=== PATIENT | female | born 1960 | race Caucasian/White ===

== ENCOUNTER 2023-06-14 14:39 | Outpatient (CLI) | payer BC, SELFPAY | END 2023-06-14 14:40 | disposition home or self-care (01) | PROVIDERS: PCP Nurse Practitioner Family; Visit Provider Nurse Practitioner Family | DX: Z01.818 Encounter for other preprocedural examination (principal) | CPT/HCPCS: 80048; 85025 ==

== ENCOUNTER 2023-06-20 13:07 | Outpatient (RCR) | payer BC, SELFPAY | END 2023-07-13 16:18 | disposition home or self-care (01) | PROVIDERS: PCP Nurse Practitioner Family; Visit Provider Orthopaedic Surgery Sports Medicine | DX: M17.11 Unilateral primary osteoarthritis, right knee (principal); Z96.651 Presence of right artificial knee joint; M25.561 Pain in right knee; M25.661 Stiffness of right knee, not elsewhere classified; R26.2 Difficulty in walking, not elsewhere classified; Z51.89 Encounter for other specified aftercare | CPT/HCPCS: 97110; 97116; 97161 ==

== ENCOUNTER 2023-06-27 06:00 | Day surgery (SDC) | payer BC, SELFPAY ==
[2023-06-27] VITALS (17 sets, daily range): BP systolic 94–135; BP diastolic 56–88; PULSE 59–74; RESP 16; TEMP 35.9–36.9; O2SAT 94–100; BMI 28.0
[2023-06-27] MEDS: OXYCODONE (CR) 10 MG TAB.ER.12H PO (06:30)
[2023-06-27] MEDS: ACETAMINOPHEN 500 MG TABLET 1000 MG PO (06:30)
[2023-06-27] MEDS: LACTATED RINGERS 1000 ML 1,000 ML 100 ML IV ×2 (06:50→07:52)
[2023-06-27] MEDS: fentaNYL 100 MCG/2 ML inj IVP (07:03)
[2023-06-27] MEDS: MIDAZOLAM HCL 1 MG/ML inj IVP (07:04)
--- NOTE | 2023-06-27 07:14 | W.PM.NB ---
Nerve Block Nerve Block Time Seen by Provider: 07:00 Date Seen: 06/27/23 Type of block requested by surgeon for post-operative analgesia: adductor canal Side: right Time out performed: Yes Verification of patient name: Yes Verification of date of : Yes Site marking: site marked Name of person performing procedure: Joo Nelson Continuous monitoring Was continuous monitoring of O2 sat, B/P, quality assurance monitor chassis, recorded every 15 minutes?: Yes Procedure Checklist: sterile prep, needles and gloves Ultrasound guided. Images saved: Yes Medications given in 5ml increments after negative aspiration: Ropivicaine %: 0.5 mL: 20 Needle gauge: 20 Decadron (mg): 10 Precedex (mcg): 25 Patient tolerated procedure well: Yes Additional comments: injected in 5ml increments after negative aspiration Block Charges Block Charge (with Pro Fee): Femoral Nerve Use of Ultrasound Machine for Block: Yes- US Guidance/pain block
--- NOTE | 2023-06-27 07:15 | P.NB_ITS ---
Nerve Block Nerve Block Time Seen by Provider: 07:00 Date Seen: 06/27/23 Type of block requested by surgeon for post-operative analgesia: geniculars Side: right Time out performed: Yes Verification of patient name: Yes Verification of date of : Yes Site marking: site marked Name of person performing procedure: Joo Nelson Continuous monitoring Was continuous monitoring of O2 sat, B/P, monitor technician, recorded every 15 minutes?: Yes Procedure Checklist: sterile prep, needles and gloves Ultrasound guided. Images saved: No Medications given in 5ml increments after negative aspiration: Ropivicaine %: 0.5 mL: 12 Needle gauge: 25 Patient tolerated procedure well: Yes Additional comments: Injected in 4ml increments after negative aspiration Block Charges Block Charge (with Pro Fee): Genicular Nerve Block Use of Ultrasound Machine for Block: No
[2023-06-27] MEDS: CEFAZOLIN 2 GM in 0.9 % SODIUM CHLORIDE Mini-bag 100 ML IVPB (07:42)
[2023-06-27] MEDS: TRANEXAMIC ACID 100 MG/ML INJ 1000 MG IV (07:44)
--- NOTE | 2023-06-27 08:35 | W.PM.H&PU ---
History & Physical Update History & Physical Update H&P Reviewed and patient assessed: No changes noted
--- NOTE | 2023-06-27 08:36 | P.ORPRC_ITS ---
Procedure Note Date of procedure: 06/27/23 Procedure: PREOPERATIVE DIAGNOSIS: 1. Right knee osteoarthritis, primary, severe POSTOPERATIVE DIAGNOSIS: 1. Right knee osteoarthritis, primary, severe PROCEDURE: 1. Right total knee arthroplasty SURGEON: Levon Cherry MD. TEXTILE MACHINE OPERATOR: LEONIE Cortes - Of note, a skilled fast food assistant restaurant manager was critical for this case to aid in patient positioning, tissue retraction, limb manipulation/positioning, and closure. ANESTHESIA: Spinal anesthetic EBL: 50ml IMPLANTS: DePuy J&J uncemented femur/tibia, cemented patella TKA - Attune Press fit PS femur size 6 narrow, size for tibia, 5 poly spacer, 38 mm cemented patella TOURNIQUET: 80 min at 300 torr COMPLICATIONS: None evident INDICATIONS: The patient is a pleasant 62-year-old female who has experienced severe right knee pain and difficulty bearing weight. Workup included x-rays which revealed severe osteoarthrosis in the knee. Given the deformity, the dysfunction, and the pain, as well as the failure of nonoperative management, recommendation was made for surgery. FINDINGS: Full-thickness chondral loss broadly throughout the medial compartment with degenerative meniscus pathology. Significant patellofemoral chondromalacia. To lesser degree lateral compartment chondromalacia. Small effusion upon entering the joint. DESCRIPTION OF PROCEDURE: Following a thorough discussion of risks, benefits, and alternatives consent was obtained and the right knee was marked. The patient was brought to the operating room and placed supine on the operating table. Induction of anesthesia was undertaken. 1 g IV Ancef and 1 g tranexamic acid was administered within 1 hr of incision preoperatively. Proper time-out was performed identifying proper patient, site, procedure. The operative extremity was prepped and draped in the appropriate sterile fashion using ChloraPrep after the patient was positioned supine with all bony prominences well padded. A longitudinal, anterior, midline skin incision was made starting approximately 3cm proximal to the superior pole of the patella and advanced distal to the tibial tubercle. A median parapatellar arthrotomy was created. A medial subperiosteal sleeve was created with knife, santiago elevator and curved osteotome. The retropatellar fatpad was resected and the synovium in the suprapatellar pouch excised to visualize the anterior femoral cortex. Femoral preparation was performed via an intramedullary guide. Step drill allowed access into the femoral canal. The distal cutting guide was placed with 5? of valgus and 10 mm cut on the distal femur. Femur was sized using a anterior referencing guide in 3? of external rotation. This found have a best fit with the sizing noted above. The 4 in 1 cutting block was then placed, and the distal femur shaped accordingly. The box cut was then created and the trial implant inserted to confirm appropriate fit. We turned our attention to the proximal tibia. Extramedullary guide was utilized for cutting with the goal of being 90 degree cut from the mechanical axis of the tibia in the varus/valgus plane utilizing tibial crest as the primary alignment. Initially a 2 mm resection was performed from the medial tibial plateau. Ultimately, balancing was achieved in both flexion and extension in both varus and valgus. The knee was able to achieve full extension comfortably. The patella was initially measured and found have a thickness of 20 mm. It was resected back to approximately 14 mm. It was sized to be a best fit with as noted above. This was drilled & trial placed. All trials were placed and found to have an excellent stability and balance. At this stage, trial implants were removed, the tibia and femoral components were opened and inserted. Thereafter, the patella was thoroughly irrigated normal saline and dried. The cement was previously mixed on the back table and cement placed followed by the implant. This was clamped and allowed remained stable until the cement cured. The real poly spacer was opened and inserted. All extra cement was removed, and a 3 min Betadine soak performed. Finally, a final irrigation round with normal saline was performed. Closure performed with 0 PDS and #0 Stratafix for the quad tendon/retinaculum. 2-0 Vicryl/Stratafix for the subcutaneous and 4-0 Monocryl for subcuticular closure. Dressings were applied and the patient was awoken from anesthesia a fter the tourniquet deflated and transferred the PACU in stable condition. A skilled fast food assistant restaurant manager was critical for this case to aid in patient positioning, tissue retraction, bone exposure, limb manipulation/positioning, patient safety, and closure. PLAN: 1. Weight bear as tolerated operative extremity. 2. 23 hr perioperative antibiotics. 3. Ice. 4. PT/OT consults for ambulation assistance/mobility education. 5. Social work consult for discharge planning. 6. DVT prophylaxis with at SCDs, Moncho Hose, and aspirin twice daily.
--- NOTE | 2023-06-27 09:23 | CRLHL7_ITS ---
For Patients: As a result of the Century Cures Act, medical imaging exams and procedure reports are released immediately into your electronic medical record. You may view this report before your referring provider. If you have questions, please contact your health care provider. INDICATION: Postoperative knee replacement. Followup. TECHNIQUE: Two portable postoperative images of the right knee. FINDINGS: Right total knee arthroplasty. Patellar resurfacing. The components are adequately aligned and well seated. Air within the joint space and soft tissues related to the surgery. IMPRESSION: Right total knee arthroplasty. The components are adequately aligned and well seated. Dictated by Al Bravo MD @ 06/27/2023 11:41:42 AM (Electronically Signed)
--- NOTE | 2023-06-27 11:55 | SUR.PHASEII ---
Up to bathroom with walker and assist of 2 to the wheelchair. She still has some tingling in the buttocks area but has good stability and leg strength.
--- NOTE | 2023-06-27 13:06 | SUR.PHASEII ---
PATIENT BROUGHT TO REHAB. DOING WELL.
--- NOTE | 2023-07-19 10:54 | W.ANESCHARGE ---
Anesthesia Charges Start Date/Time Anesthesia Start Date: 06/27/23 Anesthesia Start Time: 07:31 Stop Date/Time Anesthesia Stop Date: 06/27/23 Anesthesia Stop Time: 09:14
== END 2023-06-27 14:16 | disposition home or self-care (01) ==
PROVIDERS: PCP Nurse Practitioner Family; Visit Provider Orthopaedic Surgery Sports Medicine
PROC: (CPT 27447; principal; 2023-06-27 07:30)
DX: M17.11 Unilateral primary osteoarthritis, right knee (principal); G89.18 Other acute postprocedural pain
CPT/HCPCS: 27447; 01402; 64447; 64454; 73560; 76942; 97110; 97116; 97161; A9270; C1776; J0690; J1100; J2250; J2405; J2704; J2795; J3010; J7120

== ENCOUNTER 2024-05-13 12:07 | Outpatient (CLI) | payer BC, SELFPAY ==
--- NOTE | 2024-05-13 12:15 | CRLHL7_ITS ---
For Patients: As a result of the Century Cures Act, medical imaging exams and procedure reports are released immediately into your electronic medical record. You may view this report before your referring provider. If you have questions, please contact your health care provider. INDICATION: Polyp of cervix. TECHNIQUE: Transabdominal and transvaginal pelvic ultrasound. FINDINGS: Uterus is retroverted and measures 6.8 x 3.9 x 4.0 cm. Endometrium is not well seen. There is a 2.5 cm heterogeneous solid mass in the uterine fundus. Both ovaries appear normal. No adnexal mass or free fluid. IMPRESSION: 2.5 cm mass in the uterine fundus. Differential considerations include endometrial neoplasm and sub mucosal leiomyoma. Dictated by Ry Barrera MD @ 05/13/2024 2:56:39 PM (Electronically Signed)
== END 2024-05-13 12:08 | disposition home or self-care (01) ==
LOC: US 12:08
PROVIDERS: PCP Nurse Practitioner Family; Visit Provider Obstetrics & Gynecology
DX: N84.1 Polyp of cervix uteri (principal); R19.09 Other intra-abdominal and pelvic swelling, mass and lump
CPT/HCPCS: 76830; 76856

== ENCOUNTER 2024-05-22 07:54 | Outpatient (CLI) | payer BC, SELFPAY ==
--- NOTE | 2024-05-22 08:15 | CRLHL7_ITS ---
For Patients: As a result of the Century Cures Act, medical imaging exams and procedure reports are released immediately into your electronic medical record. You may view this report before your referring provider. If you have questions, please contact your health care provider. INDICATION: Polyp removal TECHNIQUE: 1.5 T MRI of the pelvis was performed with MRI performed with pre and postcontrast T1 weighted imaging; T2 weighted imaging. 15 mL Dotarem IV. COMPARISON: Pelvic ultrasound 05/13/2024 FINDINGS: Uterus: The uterus is retroverted and normal in size measuring 4 x 6 cm. The endometrium measuring 3 mm in thickness. Dominant fibroid centered along the posterior uterus that is largely intramural with suspected submucosal component (FIGO 3) measuring 2.6 x 2.6 cm. Adjacent 0.6 cm fibroid is entirely intramural (FIGO 4). Along the left endometrium, there is an ill-defined region of T2 intermediate signal measuring 0.6 cm (4/19). This is not well evaluated on postcontrast sequences in the absence of small [id number]-[id number]-fjtu images, although may be present on series 16, image 19. This may correspond to a hyperechoic focus in the region of the endometrium measuring 0.5 cm on prior ultrasound. No definite evidence of endometriosis or adenomyosis. Cervical stroma: Intact without evidence of mass Ovaries/adnexa: Unremarkable. No evidence of ovarian/adnexal mass. Remaining pelvis: Limited evaluation of the abdominal viscera demonstrates normal appearance of the visualized bowel and urinary bladder. Vasculature: iliac arteries are patent. Lymph nodes: No enlarged lymph nodes within the pelvis. Peritoneal space: No free fluid within the pelvis. Musculoskeletal: Bone marrow signal is within normal limits. IMPRESSION: 1. Retroverted uterus with two uterine fibroids, the largest measuring up to 2.6 cm (FIGO 3) 2. Ill-defined region of signal abnormality along the left endometrium measuring approximately 0.6 cm is suboptimally evaluated in the absence of small zcpix-um-whck postcontrast imaging. In the setting of recent polypectomy, this may represent debris versus residual polyp. Dictated by Daisy Borrero MD @ 05/23/2024 11:29:48 AM (Electronically Signed)
== END 2024-05-22 07:55 | disposition home or self-care (01) ==
LOC: MRI 07:55
PROVIDERS: PCP Nurse Practitioner Family; Visit Provider Obstetrics & Gynecology
DX: N85.8 Other specified noninflammatory disorders of uterus (principal); D25.9 Leiomyoma of uterus, unspecified
CPT/HCPCS: 72197; A9575

== ENCOUNTER 2024-06-25 11:19 | Outpatient (CLI) | payer BC, SELFPAY ==
--- NOTE | 2024-06-25 11:30 | CRLHL7_ITS ---
For Patients: As a result of the Century Cures Act, medical imaging exams and procedure reports are released immediately into your electronic medical record. You may view this report before your referring provider. If you have questions, please contact your health care provider. BILATERAL SCREENING MAMMOGRAM WITH COMPUTER-AIDED DETECTION AND TOMOSYNTHESIS TECHNIQUE: CC and MLO views were obtained. These mammographic images have been obtained using full-field digital technique. These mammographic images were interpreted with the benefit of computer-aided detection. Breast Tomosynthesis was used in this interpretation. COMPARISON FILM: 10/06/22, 11/01/20, 09/30/19. FINDINGS: There are scattered areas of fibroglandular density. IMPRESSION: There is no radiographic evidence for malignancy. ASSESSMENT: BI-RADS Category 1: Negative RECOMMENDATION: Routine screening mammogram in 1 year. A lay language report of this examination will be provided to the patient. Grant Hernandez M.D. Diagnostic Radiologist [email or web address] SP/Dictated by: Grant Hernandez MD @ 07/01/2024 12:05:00 PM (Electronically Signed)
== END 2024-06-25 11:20 | disposition home or self-care (01) ==
LOC: MAMMO 11:20
PROVIDERS: PCP Nurse Practitioner Family; Visit Provider Nurse Practitioner Family
DX: Z12.31 Encounter for screening mammogram for malignant neoplasm of breast (principal)
CPT/HCPCS: 77063; 77067

== ENCOUNTER 2024-09-11 13:07 | Outpatient (CLI) | payer BC, SELFPAY | END 2024-09-11 13:08 | disposition home or self-care (01) | PROVIDERS: PCP Nurse Practitioner Family; Visit Provider Nurse Practitioner Family | DX: Z01.818 Encounter for other preprocedural examination (principal) | CPT/HCPCS: 80053; 85025 ==

== ENCOUNTER 2024-09-18 06:09 | Day surgery (SDC) | payer BC, SELFPAY ==
--- OUTSIDE RECORDS SUMMARY | 2024-09-18 06:11 | XMS_ITS | Clinical Summary ---
Author Organization [facility] Address [address] [place] [address] Care Team Providers Care Bowling Pin Setters Installer Name Role Phone Unavailable Primary Care Provider Unavailabl e Source Comments Patient records contain information from all sites at [facility]. For routine questions regarding patient records, call [phone] during business hours, M-F 8:00 AM - 5:00 PM Central Time. 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 Gender Identity Not on file Sexual Orientation Not on file Plan of Treatment Health Maintenance Due Date Last Done Comments CT Colonography 1961 Cervical/Vaginal Cancer Screening 1961 Cologuard 1961 Colonoscopy 1961 Colorectal Cancer Screening 1961 FIT 1961 Fasting Glucose for Diabetes Screening 1961 HIV Screening 1961 Hepatitis C Screening 1961 Pneumococcal vaccine (50+ years) (1 of 1 - PCV) 2011 Depression Screening (Annual PHQ-2) 09/10/2023 Mammogram 10/06/2023 10/06/2022, 09/11, 11/01/2020 COVID-19 Vaccine (2023- season) 2024 06/20/2023, 06/07/2022, 01/18/2022, Additional history exists Influenza Vaccine (#1) 2024 2, 06/14/2021, 07/29/2020, Additional history exists Lipid (Cholesterol) Screening 10/25/2025 10/25/2020 DTaP,Tdap,and Td Vaccines (3 - Td or Tdap) 12/26/2032 12/26/2022, 08/06/2012, 08/09/2007 Zoster Vaccines Completed 03/22/2021, 12/16/2020 IPV Vaccines Aged Out No longer eligi ble based on patient's age to complete this topic Pneumococcal vaccine (0-49 years) Aged Out No longer eligible based on patient's age to complete this topic Insurance [facility]
--- OUTSIDE RECORDS SUMMARY | 2024-09-18 06:11 | XMS_ITS | Referral Summary ---
Author Organization [facility] Address [address] [place] [address] Care Team Providers Care Reproduction Order Processor Name Role Phone Unavailable Primary Care Provider Unavailabl e Source Comments Patient records contain information from all sites at [facility]. For routine questions regarding patient records, call [phone] during business hours, M-F 8:00 AM - 5:00 PM Central Time. 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
--- OUTSIDE RECORDS SUMMARY | 2024-09-18 06:11 | XMS_ITS | Clinical Summary ---
Author Organization [facility] Address [place], [place] [address] Care Team Providers Care Street Light Repairer Name Role Phone Maru Narvaez DO Primary Care Provider [phone] Allergies Active Allergy Reactions Criticality Noted Date Comments Sulfa (Sulfonamide Antibiotics) Hives 07/13 Medications multivitamin (MVI) tablet Take 1 tablet by mouth once daily. 0 07/19/2010 Active omega-3 fatty acids-vitamin E (FISH OIL) 1,000 mg Cap Take 1 capsule by mouth once daily. 0 07/19/2010 Active meloxicam 15 mg tabletIndicatio ns:Acute pain of right knee Take 1 Tablet (15 mg) by mouth once daily. 30 Tablet 05/06/2021 Active Active Problems Problem Noted Date Diagnosed Date Arthritis of knee, left 12/07/2020 Degenerative tear of left medial meniscus 2020 Polyp at cervical os 10/25/2020 Overview (10/25/2020): Too small to biopsy 10/25/2020; repeat examination in 1 year Chronic pain of left knee 10/25/2020 Resolved Problems Problem Noted Date Diagnosed Date Resolved Date Well adult exam 07/28/2015 10/25/2020 Immunizations Name Administration Dates Next Due COVID-19 vaccine (Bambuser NTMemoryBistro 30mcg/0.3mL) AMANUEL LEARY 09/21/2020,09/01/2020 Hepatitis B (Adult) 12/03/2002,07/14/2002,2001 Influenza RIV4 (Age 18+ Years) PRESERV FREE 07/11 Influenza Virus, Unspecified 05/30/2018 Influenza, IIV3 (Age >=3 years) 08/06/2012 Influenza, IIV4 07/31/2019,06/26/2017,07/28/2015 Influenza, IIV4 (=>6mos) MDV 06/27/2016 Td, Preservative Free (age >= 7 Years) 7 Tdap 08/06/2012 Zoster (Shingrix-RZV, recombinant) 03/22/2021, Family History Medical History Relation Name Comments Thyroid Disease Brother cancer, skin cancer-both in his 20's as well Other Father copd, age 73 Cancer-colon Maternal Uncle Good Health Mother former smoker Cancer-breast Sister Cancer-ovarian No Family History Relation Name Status Comments Brother Father Maternal Uncle Mother Sister Social History Tobacco Use Types Packs/Day Years Used Date Smoking Tobacco: Never Smokeless Tobacco: Never Tobacco Cessation:Counseling Given: Yes Alcohol Use Standard Drinks/Week Comments Yes 0 (1 standard drink = 0.6 oz pure alcohol) occ., 2 drinks per month on average PHQ-2 Answer Date Recorded PHQ-2 TOTAL SCORE 0 10/25/2020 Social Connections Answer Date Recorded Frequency of Communication with Friends and Fami ly Not on file 09/10/2021 Financial Resource Strain Answer Date R ecorded Difficulty of Paying Living Expenses Not on file 09/10/2021 Difficulty of Paying Living Expenses Not on file 09/10/2021 Comments No Sex and Gender Information Value Date Recorded Sex Assigned at Not on file Legal Sex Female 5:46 AM TINNING EQUIPMENT TENDER Gender Identity Not on file Sexual Orientation Not on file 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 Not on file Not on file Not on file Obstetrics History Para Term AB IAB SAB Ectopic Multiple Livin g Live Births 5 4 1 1 4 Date Outcome GA Total Labor Labor/2nd/3rd Weight Sex Type Anes PTL Lacy A1 A5 Name Clin SAB Para Para Para Para Last Filed Vital Signs Vital Sign Reading Time Taken Comments Blood Pressure 121/75 04/29/2021 12:54 PM CDT Pulse 57 04/29/2021 12:54 PM CDT Temperature 36.4 C (97.6 F) 10/25/2020 1:35 PM TINNING EQUIPMENT TENDER Respiratory Rate - - Oxygen Saturation 98% 04/29/2021 12:54 PM CDT Inhaled Oxygen Concentration - - Weight 78.9 kg (174 lb) 04/29/2021 12:54 PM CDT Height 165 cm (5' 4.96) 11/16/2020 1:01 PM TINNING EQUIPMENT TENDER Body Mass Index 28.99 11/16/2020 1:01 PM TINNING EQUIPMENT TENDER Plan of Treatment Health Maintenance Due Date Last Done Comments HIV for age 15-65 1976 Pneumococcal series for age 50+ (1 of 1 - PCV) 2011 Depression screening for age 12+ 10/25/2021 10/25/2020 BMI (ht and wt on same day) for age 18+ 11/16/2021 11/16/2020, 10/25/2020 Tetanus booster 08/06/2022 08/06/2012, 08/09/2007 Colonoscopy through age 75 09/20/2022 09/20/2012 Mammogram for age 45-75 10/06/2023 10/06/19, 11/01/2020, 09/30/2019, Additional history exists COVID-19 vaccine series (2023- season) 2024 06/07/2022, 01/18/2022, 06/16/2021, Additional history exists Influenza for age 50-64 05/11/2024 07/29/20 20, 07/31/2019, 05/30/2018, Additional history exists Lipids for age 45-75 10/25/2025 10/25/2020, 09/30/19 09 Pap test for age 21-65 05/02/2029 , 04/11/2024, 10/25/2020, Additional history exists RSV vaccine for adults or (1 - 1-dose 75+ series) 2036 Tdap Completed 08/06/2012 Hepatitis C screening for age 18-79 Completed 10/25/2020 Zoster (shingles) series for age 50+ Completed 03/22/2021, 12/16/2020 Pneumococcal series for age 6-49 Aged Out No longer eligible based on patient's age to complete this topic Procedures Procedure Name Priority Date/Time Associated Diagnosis Comments HPV HIGH RISK Routine 05/02/2024 2:29 PM CDT XR MAMMO MARY LOU BILAT SCREEN Routine 10/06/2022 11:56 AM TINNING EQUIPMENT TENDER Visit for screening mammogram ANTI HCV Routine 10/25/2020 2:51 PM TINNING EQUIPMENT TENDER Need for hepatitis C screening test LIPID PANEL W REFLEX MEASURED LDL Routine 10/25/2020 2:51 PM TINNING EQUIPMENT TENDER Screening for lipid disorders from Last 3 Months or Most Recently Relevant to Health Maintenance Results * HPV HIGH RISK (05/02/2024 2:29 PM CDT) TYPE 16 Negative Negative 05/08/2024 11:27 AM CDT [facility] TYPE 18 Negative Negative 05/08/2024 11:27 AM CDT [facility] OTHER HIGH RISK TYPES Negative Negative 05/08/2024 11:27 AM CDT [facility] Other (Cervical) 05/02/2024 2:29 PM CDT 05/05/2024 5:03 PM CDT Narrative [facility] - 05/08/2024 11:27 AM CDT HPV types 16, 18, 31, 33, 35, 39, 45, 51, 52, 56, 58, 59, 66 and 68 DNA were undetectable or below the pre-set threshold. Methodology: Sebastian Fabrice 4800 HPV Test us [facility] Medina Funes MD MICROBIOLOGY Final Result [facility] [address] [place] [address], * XR MAMMO MARY LOU BILAT SCREEN (10/06/2022 11:56 AM TINNING EQUIPMENT TENDER) Anatomical Region Laterality Modality BREASTS, Breast Left, Breast Right Bilateral Mammography Impressions 10/06/2022 2:27 PM TINNING EQUIPMENT TENDER There is no radiographic evidence for malignancy. Recommend annual mammograms. MAMMOGRAM ASSESSMENT: ACR 1 Negative PATIENTS: You will also receive a letter with your examination results in an easy to read format. If you have questions about your results, please contact your referring provider. Narrative 10/06/2022 2:27 PM TINNING EQUIPMENT TENDER For Patients: As a result of the Century Cures Act, medical imaging exams and procedure reports are released immediately into your electronic medical record. You may view this report before your referring provider. If you have questions, please contact your health care provider. XR MAMMO MARY LOU BILAT SCREEN [[id number]] CLINICAL HISTORY: This is an asymptomatic 61 y.o. patient. INDICATION FOR EXAM: Mammogram Screening. TECHNIQUE: CC & MLO views were obtained. This study was evaluated with the assistance of Computer-Aided Detection. Breast Tomosynthesis was used in interpretation. COMPARISON FILM: Yes 11/01/20 [facility] 09/30/19 [facility] FINDINGS: The breasts have scattered areas of fibroglandular density. There are no dominant masses, suspicious micro calcifications or areas of architectural distortion. us Maru Lacy Cosmeqra DO MAMMO Final Result * (ABNORMAL) LIPID PANEL W REFLEX MEASURED LDL [[id number]] (10/25/2020 2:51 PM TINNING EQUIPMENT TENDER) CHOLESTEROL,TOTAL 222(H) 100 - 199 mg/dL 10/25/2020 8:34 PM TINNING EQUIPMENT TENDER [facility] TRIGLYCERIDES 57 <150 mg/dL 10/25/2020 8:34 PM TINNING EQUIPMENT TENDER [facility] HDL CHOLESTEROL 74 >40 mg/dL 8:34 PM [facility] NON-HDL CHOLESTEROL 148(H) <145 mg/dl 10/25/2020 8:34 PM TINNING EQUIPMENT TENDER [facility] CHOL/HDL RATIO 3.00 <4.50 10/25/2020 8:34 PM TINNING EQUIPMENT TENDER [facility] LDL CHOLESTEROL 137(H) <=130 mg/dL 10/25/2020 8:34 PM [facility] PROVIDER ORDERED STATUS RANDOM 10/25/2020 8:34 PM TINNING EQUIPMENT TENDER [facility] Blood BLOOD SPECIMEN / Unknown Venipuncture / Unknown 10/25/2020 2:51 PM TINNING EQUIPMENT TENDER 10/25/2020 2:51 PM TINNING EQUIPMENT TENDER us Maru Narvaez DO CHEMISTRY Final Result [facility] [address] [place] [address], [place] * ANTI HCV (10/25/2020 2:51 PM TINNING EQUIPMENT TENDER) HEPATITIS C ANTIBODY Non-React neo Non-React neo 10/25/2020 8:53 PM TINNING EQUIPMENT TENDER [facility] Comment:Antibodies to HCV no t detected; does not exclude the possibility of exposure to HCV. Blood BLOOD SPECIMEN / Unknown Venipuncture / Unknown 10/25/2020 2:51 PM TINNING EQUIPMENT TENDER 10/25/2020 2:51 PM TINNING EQUIPMENT TENDER us Maru Narvaez DO SEND OUTS Final Result Performing Organization Address City/[facility]/ZIP Co de Phone Number [facility] [address] [place] [address], [place] from Last 3 Months or Most Recently Relevant to Health Maintenance Insurance Care Teams Street Light Repairer Relationship Specialty Start Date End Date Maru Narvaez DO [address] [place] [address] PCP - General Family Practice 04/29/21
--- OUTSIDE RECORDS SUMMARY | 2024-09-18 06:11 | XMS_ITS ---
Author Organization [facility] Address [address] [place] [address] Care Team Providers Care Expenditure Requisition Clerk Name Role Phone Unavailable Unavailable Unavailable Surgery Details Not on file Complications Check Surgery Details section. Procedure Estimated Blood Loss Check Surgery Details section. Procedure Findings Check Surgery Details section. Procedure Specimens Taken Check Surgery Details section.
--- OUTSIDE RECORDS SUMMARY | 2024-09-18 06:11 | XMS_ITS | Continuity of Care Document ---
Author Name [facility] Address Unknown Organization Unknown Address Unknown Procedures FILTER APPLIED:Only known Procedures with Onset Date within the last 5 years Procedure Date Procedure Provider Suyapa [email or web address] Information Status ECHO GUIDE FOR BIOPSY (04221) Completed GAIT TRAINING THERAPY (89509) Completed THERAPEUTIC EXERCISES (58843) Completed ANESTH KNEE ARTHROPLASTY (83346) Completed ARTHRP KNE CONDYLEANDPLATU MEDIALANDLAT COMPARTMENTS (82536) Completed PT EVAL LOW COMPLEX 20 MIN (87104) Completed X-RAY EXAM OF KNEE 1 OR 2 (22143) Completed PT EVAL LOW COMPLEX 20 MIN (09839) Completed GAIT TRAINING THERAPY (98584) Completed THERAPEUTIC EXERCISES (15068) Completed COMPLETE CBC W/AUTO DIFF WBC (34544) Completed METABOLIC PANEL TOTAL CA (10926) Completed Encounters FILTER APPLIED:Only known Encounters with Admission Date within the last 5 years Encounter Location Admission Discharge Billing Code Consultant Felicia valerio Outpatient Pepe Ramsey Outpatient Levon Cherry Outpatient Levon Cherry
[2024-09-18 06:41] VITALS: BMI 28.3
[2024-09-18 06:45] VITALS: BP 128/75; PULSE 68; RESP 16; TEMP 36.7; O2SAT 96
[2024-09-18 06:46] LABS: Hemoglobin* 12.2 gm/dL (12.0-16.0)
[2024-09-18] MEDS: SODIUM CHLORIDE 0.9 % (FLUSH) 10 ML SYRINGE IVF (06:46)
[2024-09-18] MEDS: 0.9 % SODIUM CHLORIDE 500 ML 500 ML 100 ML IV (07:11)
--- NOTE | 2024-09-18 07:20 | W.PM.H&PU ---
History & Physical Update History & Physical Update H&P Reviewed and patient assessed: No changes noted
[2024-09-18] MEDS: LIDOCAINE 1%-EPI 1:100,000 10 ML INFILTRATI (08:00)
[2024-09-18 08:10] VITALS: BP 106/62; PULSE 69; RESP 14; TEMP 36.2; O2SAT 93
--- NOTE | 2024-09-18 08:11 | P.ANES_ITS ---
Anesthesia Charges Start Date/Time Anesthesia Start Date: 09/18/24 Anesthesia Start Time: 07:19 Stop Date/Time Anesthesia Stop Date: 09/18/24 Anesthesia Stop Time: 08:12 Coding CPT Codes CPT Codes: ANESTH SURGERY OF ABDOMEN - 20969 ([id number]) P1 - NORMAL HEALTHY PATIENT, QK - PERSONNEL CLERKS SUPERVISOR 2-4 CNCRNT ANELam PROC, QX - MUNITIONS HANDLER SUPERVISOR SVUmang W/ MED DIRECTION
--- NOTE | 2024-09-18 08:11 | W.ANESCHARGE ---
Anesthesia Charges Start Date/Time Anesthesia Start Date: 09/18/24 Anesthesia Start Time: 07:19 Stop Date/Time Anesthesia Stop Date: 09/18/24 Anesthesia Stop Time: 08:12 Coding CPT Codes CPT Codes: ANESTH SURGERY OF ABDOMEN - 81370 ([id number]) P1 - NORMAL HEALTHY PATIENT, QK - CHART WRITER 2-4 CNCRNT ANELam PROC, QX - BRIMMING MACHINE OPERATOR SVUmang W/ MED DIRECTION
--- NOTE | 2024-09-18 08:15 | P.ANES_ITS ---
Anesthesia Charges Start Date/Time Anesthesia Start Date: 09/18/24 Anesthesia Start Time: 07:19 Stop Date/Time Anesthesia Stop Date: 09/18/24 Anesthesia Stop Time: 08:12 Coding CPT Codes CPT Codes: ANESTH SURGERY OF ABDOMEN - 48185 ([id number]) P1 - NORMAL HEALTHY PATIENT, QK - PRINCIPAL RESEARCH ECONOMIST 2-4 CNCRNT ANELam PROC, QX - REGISTER CLERK SVUmang W/ MED DIRECTION
--- NOTE | 2024-09-18 08:15 | W.ANESCHARGE ---
Anesthesia Charges Start Date/Time Anesthesia Start Date: 09/18/24 Anesthesia Start Time: 07:19 Stop Date/Time Anesthesia Stop Date: 09/18/24 Anesthesia Stop Time: 08:12 Coding CPT Codes CPT Codes: ANESTH SURGERY OF ABDOMEN - 90489 ([id number]) P1 - NORMAL HEALTHY PATIENT, QK - DRIP PUMPER 2-4 CNCRNT ANELam PROC, QX - PUBLICATIONS INSPECTOR SVUmang W/ MED DIRECTION
[2024-09-18 08:32] VITALS: BP 144/83; PULSE 69; RESP 14; O2SAT 93
[2024-09-18 08:45] VITALS: BP 145/79; PULSE 72; RESP 16; O2SAT 97
--- NOTE | 2024-09-18 09:19 | SUR.PHASEII ---
pt tolerated sprite and water, declined food. Slight discomfort, pt states I will take Tylenol when I get home. Pt ambulated to car with . Pt voided without difficulty
--- NOTE | 2024-09-18 09:48 | P.GYNPRC_ITS ---
Procedure Note Time Seen by Provider: 07:30 Date of procedure: 09/18/24 Will [facility] bill your pro fee for this procedure?: Yes Pre-op diagnosis: 1. Unsatisfactory pap smear 2. Uterine submucosal leiomyoma Post-op diagnosis: Same Procedure: 1. Colposcopy, cervical biopsies, and ECC 2. Hysteroscopy, Dilation and curettage 3. Polypectomy and myomectomy Anesthesia: MAC and local Complications: None Surgeon: Gianna Funes MD IV fluids (mL): 300 Urine Output (mL): 30 Pathology: specimen obtained, sent to pathology Condition: stable Disposition: same day Procedure Description: Findings: Exam under anesthesia: Uterus: retroverted position, less than 6 week sized, mobile, with no masses or nodularity palpable. Uterus sounded to 6 cm. No adnexal masses or nodularity palpable. On hysteroscopy: Overall atrophy endometrium with multiple small polyps. Posterior uterine leiomyoma noted. Procedure: Ryne was taken to the operating operating room more conscious sedation was found to be adequate. The patient was placed on in the dorsal lithotomy position and an exam under anesthesia was performed. Prior to surgical prep, colposcopy was performed. Her external genitalia, urethral meatus, Capac's and Bartholin's glands all appear normal. A sterile, bivalve, metal speculum was placed in the vaginal canal and both the vagina and cervix appear normal. Lugol's was then applied to the cervix and a colposcopy performed. White change visualized: yes thin, at the 8 o'clock position(s). Possible cervical polyp at 3 o'clock position Biopsies performed at those position. ECC performed. Instruments were removed and attention was turned towards her hysteroscopy. She was then prepped and draped in a normal sterile manner. A bivalve speculum was placed in the vagina. The cervix appears nulliparous. The paracervical block was placed using 1% lidocaine with epi, 5 mL was injected at the 4 and 8 o'clock positions on the cervix. The anterior lip of the cervix was grasped with a long tenaculum. The cervix dilated to Hegar 6. The uterus sounded to 6 cm. The Truclear hysteroscope was advanced into the uterus. A diagnostic hysteroscopy was performed with normal saline as the insufflation medium. Findings are stated above. The Truclear incisor was then advanced through the camera. Global curettage, polypectomy and myomectomy were performed with the soft tissue incisor. The incisor was then removed. The endometrial cavity appeared normal. Saline deficit at the end of the procedure 120 mL. The hysteroscope, tenaculum clamp and speculum were removed from the vaginal canal. Nothing required for hemostasis. The patient tolerated the procedure well. Sponge, lap and instrument counts were correct x2 at the end of the procedure. The patient was taken to the recovery area in stable condition. Debrief performed. Specimens reviewed below: 1. Cervical biopsy at 3 o'clock 2. Cervical biopsy at 8 o'clock 3. ECC 4. Endometrial polyp/leiomyoma
== END 2024-09-18 09:15 | disposition home or self-care (01) ==
LOC: OR 06:10
PROVIDERS: PCP Nurse Practitioner Family; Visit Provider Obstetrics & Gynecology
PROC: 0UJH8ZZ Inspection of Vagina and Cul-de-sac, Via Natural or Artificial Opening Endoscopic (ICD-10-PCS; CPT 58558; principal; 2024-09-18 07:15)
PROC: 0UDB8ZZ Extraction of Endometrium, Via Natural or Artificial Opening Endoscopic (ICD-10-PCS; CPT 58558; 2024-09-18 07:15)
DX: D25.0 Submucous leiomyoma of uterus (principal); R87.615 Unsatisfactory cytologic smear of cervix; N84.1 Polyp of cervix uteri
CPT/HCPCS: 58558; 57454; 00860; 36415; 85018; 86850; 86900; 86901; 88305; A9270; C1782; J2250; J2704; J3490; J7030

== ENCOUNTER 2025-07-10 10:20 | Outpatient (CLI) | payer BC, SELFPAY | END 2025-07-10 10:21 | disposition home or self-care (01) | PROVIDERS: PCP Nurse Practitioner Family; Visit Provider Nurse Practitioner Family | DX: Z01.818 Encounter for other preprocedural examination (principal) | CPT/HCPCS: 80053; 85025 ==

== ENCOUNTER 2025-07-13 10:02 | Outpatient (CLI) | payer BC, SELFPAY | END 2025-07-13 10:03 | disposition home or self-care (01) | LOC: KYNREF 10:02 | PROVIDERS: PCP Nurse Practitioner Family; Visit Provider Nurse Practitioner Family | DX: Z01.818 Encounter for other preprocedural examination (principal) | CPT/HCPCS: 80048; 87086 ==

== ENCOUNTER 2025-07-22 06:06 | Day surgery (SDC) | payer BC, SELFPAY ==
[2025-07-22] VITALS (19 sets, daily range): BP systolic 100–150; BP diastolic 64–114; PULSE 57–80; RESP 16–20; TEMP 36–37.2; O2SAT 92–99
[2025-07-22] MEDS: SODIUM CHLORIDE 0.9 % (FLUSH) 10 ML SYRINGE IVF (06:40)
[2025-07-22] MEDS: LACTATED RINGERS 1000 ML 1,000 ML 100 ML IV ×2 (06:40→08:16)
[2025-07-22] MEDS: ACETAMINOPHEN 500 MG TABLET 1000 MG PO (06:53)
[2025-07-22] MEDS: OXYCODONE (CR) 10 MG TAB.ER.12H PO (06:54)
--- NOTE | 2025-07-22 06:59 | W.PM.H&PU ---
History & Physical Update History & Physical Update H&P Reviewed and patient assessed: No changes noted
[2025-07-22] MEDS: MIDAZOLAM HCL 1 MG/ML inj IVP (07:04)
--- NOTE | 2025-07-22 07:12 | SUR.PREOP ---
TIME?OUT:? 0700, left knee PT/RN/MDA?VERIFICATION?OF?SURGICAL?SITE,?PROCEDURE,?AND?CONSENT OBTAINED?PRIOR?TO?INVASIVE?PROCEDURE.
--- NOTE | 2025-07-22 07:35 | W.PM.NB ---
Nerve Block Nerve Block Time Seen by Provider: 07:00 Date Seen: 07/22/25 Type of block requested by surgeon for post-operative analgesia: adductor canal Side: left Time out performed: Yes Verification of patient name: Yes Verification of date of : Yes Site marking: site marked Name of person performing procedure: Flako Abbott Continuous monitoring Was continuous monitoring of O2 sat, B/P, diagnostic cardiac sonographer, recorded every 15 minutes?: Yes Procedure Checklist: sterile prep, needles and gloves Ultrasound guided. Images saved: Yes Medications given in 5ml increments after negative aspiration: Ropivicaine %: 0.5 mL: 30 Needle gauge: 20 Precedex (mcg): 25 Patient tolerated procedure well: Yes Additional comments: Injected in 5mL increments after negative aspiration Block Charges Block Charge (with Pro Fee): Femoral Nerve Use of Ultrasound Machine for Block: Yes- US Guidance/pain block
--- NOTE | 2025-07-22 07:36 | P.NB_ITS ---
Nerve Block Nerve Block Time Seen by Provider: 07:05 Date Seen: 07/22/25 Type of block requested by surgeon for post-operative analgesia: geniculars Side: left Time out performed: Yes Verification of patient name: Yes Verification of date of : Yes Site marking: site marked Name of person performing procedure: Flako Abbott Continuous monitoring Was continuous monitoring of O2 sat, B/P, monitoring specialist, recorded every 15 minutes?: Yes Procedure Checklist: sterile prep, needles and gloves Ultrasound guided. Images saved: No Medications given in 5ml increments after negative aspiration: Ropivicaine %: 0.5 mL: 12 Needle gauge: 25 Patient tolerated procedure well: Yes Additional comments: Injected in 4 mL increments after negative aspiration Block Charges Block Charge (with Pro Fee): Genicular Nerve Block Use of Ultrasound Machine for Block: No
[2025-07-22] MEDS: TRANEXAMIC ACID 100 MG/ML INJ 1000 MG IV (07:39)
--- NOTE | 2025-07-22 09:05 | PM.ORPRC ---
Procedure Note Date of procedure: 07/22/25 Procedure: PREOPERATIVE DIAGNOSIS: 1. Left knee osteoarthritis, primary, severe POSTOPERATIVE DIAGNOSIS: 1. Left knee osteoarthritis, primary, severe PROCEDURE: 1. Left total knee arthroplasty, Press-Fit, Rotating Platform - No tourniquet SURGEON: Levon Cherry MD. PATIENT DAY COORDINATOR: Bella Chowdhury PA-C - Of note, a skilled management assistant was critical for this case to aid in patient positioning, tissue retraction, limb manipulation/positioning, and closure. ANESTHESIA: Spinal anesthetic EBL: 100ml IMPLANTS: DePuy J&J uncemented TKA - Attune PS pressfit femur size 6 narrow Size 4 pressfit tibia Rotating Platform 5 mm RP poly spacer 38 mm Affixium patella TOURNIQUET: None COMPLICATIONS: None evident INDICATIONS: The patient is a pleasant 64-year-old female who has experienced severe left knee pain and difficulty bearing weight. Workup included x-rays which revealed severe osteoarthrosis in the knee. Given the deformity, the dysfunction, and the pain, as well as the failure of nonoperative management, recommendation was made for surgery. FINDINGS: Full-thickness chondral loss diffusely throughout the medial compartment. To lesser degree patellofemoral and lateral compartments. Degenerative meniscus pathology medial greater than lateral. DESCRIPTION OF PROCEDURE: Following a thorough discussion of risks, benefits, and alternatives consent was obtained and the left knee was marked. The patient was brought to the operating room and placed supine on the operating table. Induction of anesthesia was undertaken. 1 g IV Ancef and 1 g tranexamic acid was administered within 1 hr of incision preoperatively. Proper time-out was performed identifying proper patient, site, procedure. The operative extremity was prepped and draped in the appropriate sterile fashion using ChloraPrep after the patient was positioned supine with all bony prominences well padded. A longitudinal, anterior, midline skin incision was made starting approximately 3cm proximal to the superior pole of the patella and advanced distal to the tibial tubercle. A sub vastus approach was utilized. After mobilizing the patella, retropatellar fatpad was resected and the synovium in the suprapatellar pouch excised to visualize the anterior femoral cortex. Patellar prep showed initial measurement/thickness of 21 mm. It was resected back to approximately 13.5 mm. The patella prep was completed with drilling and a trial placed followed by a protector plate until final component implantation. Femoral preparation was performed via an intramedullary guide. Step drill allowed access into the femoral canal. The distal cutting guide was placed with 5? of valgus and 10 mm cut on the distal femur. Femur was sized using a size referencing guide (in addition to referencing the transepicondylar axis and Natalya's line) in 3? of external rotation. This was found to have a best fit with the sizing noted above. The 4 in 1 cutting block was then placed, and the distal femur shaped accordingly. The box cut was then completed. We turned our attention to the proximal tibia. Extramedullary guide was utilized for cutting with the goal of being 90 degree cut from the mechanical axis of the tibia in the varus/valgus plane utilizing tibial crest as the primary alignment. Initially a 3 mm resection was performed from the medial tibial plateau. An additional 2 mm of tibial resection was needed to achieve proper balance in both flexion & extension. Ultimately, balancing was achieved in both flexion and extension in both varus and valgus. The knee was able to achieve full extension comfortably. It was sized to be a best fit with as noted above. At this stage, trial implants were removed, the tibia and femoral and patellar components were opened and inserted. The real poly spacer was opened and inserted. A 3 min Betadine soak performed. Finally, a final irrigation round with normal saline was performed. Closure performed with 0 PDS and #0 Stratafix for the quad tendon/retinaculum. 2-0 Vicryl/Stratafix for the subcutaneous and 4-0 Monocryl for subcuticular closure. Dressings were applied and the patient was awoken from anesthesia and transferred the PACU in stable condition. A skilled management assistant was critical for this case to aid in patient positioning, tissue retraction, bone exposure, limb manipulation/positioning, patient safety, and closure. PLAN: 1. Weight bear as tolerated operative extremity. 2. 23 hr perioperative antibiotics. 3. Ice. 4. PT/OT consults for ambulation assistance/mobility education. 5. Social work consult for discharge planning. 6. DVT prophylaxis with at SCDs, and aspirin twice daily.
--- NOTE | 2025-07-22 09:57 | CRLHL7_ITS ---
For Patients: As a result of the Cures Act, medical imaging exams and procedure reports are released immediately into your electronic medical record. You may view this report before your referring provider. If you have questions, please contact your health care provider. Indication: TKA post op Technique: Two views left knee Findings/Impression: Hardware from a left total knee arthroplasty is in satisfactory position. Bone alignment is normal. No sign of acute fracture. Postop changes are within normal limits. Dictated by Grant Hernandez MD @ 07/22/2025 10:35:28 AM (Electronically Signed)
--- NOTE | 2025-07-22 10:24 | P.ANES_ITS ---
Anesthesia Charges Start Date/Time Anesthesia Start Date: 07/22/25 Anesthesia Start Time: 07:26 Stop Date/Time Anesthesia Stop Date: 07/22/25 Anesthesia Stop Time: 09:55 Coding CPT Codes CPT Codes: ANESTH KNEE ARTHROPLASTY - 85247 ([id number]) P1 - NORMAL HEALTHY PATIENT, QZ - KETTLE LOADER SVC W/O FIELD SERVICE CONSULTANT BY
--- NOTE | 2025-07-22 10:24 | W.ANESCHARGE ---
Anesthesia Charges Start Date/Time Anesthesia Start Date: 07/22/25 Anesthesia Start Time: 07:26 Stop Date/Time Anesthesia Stop Date: 07/22/25 Anesthesia Stop Time: 09:55 Coding CPT Codes CPT Codes: ANESTH KNEE ARTHROPLASTY - 84982 ([id number]) P1 - NORMAL HEALTHY PATIENT, QZ - SOLOIST DANCER SVC W/O HEAT TREATER BY
[2025-07-22] MEDS: LACTATED RINGERS 500 ML 500 ML 100 ML IV (11:35)
[2025-07-22] MEDS: IBUPROFEN 200 MG TABLET 600 MG PO (12:53)
[2025-07-22] MEDS: ONDANSETRON 2 MG/ML inj 4 MG IVP (12:54)
--- NOTE | 2025-07-22 13:19 | SUR.PHASEII ---
pt got nausaeted after using the bathroom. no emisis. given zofran as ordered. then had a large emesis after she stood to dress. she now feels much better
--- NOTE | 2025-07-22 14:27 | SUR.PHASEII ---
Pt vomited x2 at physical therapy. upon arrival from PT , pt states I feel better. Rating pain in knee 02/17. pt states tolerable at this time. VSS. Wheelchair out to car with science writer and daughter.
== END 2025-07-22 14:03 | disposition home or self-care (01) ==
LOC: OR 06:07
PROVIDERS: PCP Nurse Practitioner Family; Visit Provider Orthopaedic Surgery Sports Medicine
PROC: (CPT 27447; principal; 2025-07-22 07:30)
DX: M17.12 Unilateral primary osteoarthritis, left knee (principal); G89.18 Other acute postprocedural pain
CPT/HCPCS: 27447; 01402; 64447; 64454; 73560; 76942; 97110; 97116; 97161; 97530; A9270; C1776; J0690; J1100; J2250; J2405; J2704; J2795; J3010; J7120

== ENCOUNTER 2025-08-03 11:15 | Outpatient (CLI) | payer BC, SELFPAY ==
--- NOTE | 2025-08-03 11:30 | CRLHL7_ITS ---
For Patients: As a result of the Century Cures Act, medical imaging exams and procedure reports are released immediately into your electronic medical record. You may view this report before your referring provider. If you have questions, please contact your health care provider. INDICATION: BILATERAL SCREENING MAMMOGRAM, ASYMPTOMATIC 64 Y/O FEMALE COMPARISON: 06/25/2024, 10/06/2022, 11/01/2020 TECHNIQUE: Digital mammogram in CC and MLO projections including computer-aided detection (CAD) and tomosynthesis. BREAST COMPOSITION: There are scattered areas of fibroglandular density. FINDINGS: No suspicious findings. ASSESSMENT: BI-RADS 1 Negative RECOMMENDATION: Annual screening mammogram. A lay language report of this examination will be provided to the patient. Dictated by: Lia Bañuelos MD @ 08/04/2025 09:27:29 (Electronically Signed)
== END 2025-08-03 11:16 | disposition home or self-care (01) ==
LOC: MAMMO 11:16
PROVIDERS: PCP Nurse Practitioner Family; Visit Provider Nurse Practitioner Family
DX: Z12.31 Encounter for screening mammogram for malignant neoplasm of breast (principal)
CPT/HCPCS: 77063; 77067